=== PATIENT | female | born 1980 | race Two or more races ===

== ENCOUNTER 2018-04-21 08:16 | Outpatient (CLI) | payer OTHER | END 2018-04-21 08:45 | disposition home or self-care (01) | LOC: LAB 08:16 | DX: N30.00 Acute cystitis without hematuria (principal); N20.0 Calculus of kidney; R82.79 Other abnormal findings on microbiological examination of urine ==

== ENCOUNTER 2018-04-21 08:50 | Outpatient (CLI) | payer OTHER | END 2018-04-21 09:59 | disposition home or self-care (01) | LOC: RAD 501 08:50 | DX: N20.0 Calculus of kidney (principal); N20.1 Calculus of ureter ==

== ENCOUNTER 2018-05-20 16:05 | Outpatient (CLI) | payer OTHER | END 2018-05-20 18:00 | disposition home or self-care (01) | LOC: TOM 16:05 | DX: R10.84 Generalized abdominal pain (principal) ==

== ENCOUNTER 2018-05-20 17:25 | Outpatient (CLI) | payer OTHER | END 2018-05-20 17:42 | disposition home or self-care (01) | LOC: LAB 17:25 | DX: N30.00 Acute cystitis without hematuria (principal) ==

== ENCOUNTER 2018-05-27 10:08 | Outpatient (CLI) | payer OTHER | END 2018-05-27 10:25 | disposition home or self-care (01) | LOC: RAD 501 10:08 | DX: N20.0 Calculus of kidney (principal) ==

== ENCOUNTER 2018-06-24 09:22 | Outpatient (CLI) | payer OTHER | END 2018-06-24 14:16 | disposition home or self-care (01) | LOC: SONOGRAMA 09:22 | DX: N60.11 Diffuse cystic mastopathy of right breast (principal) ==

== ENCOUNTER → 2018-10-25 16:21 | Outpatient (CLI) | payer OTHER | END | disposition home or self-care (01) | LOC: LAB 16:21 | DX: J11.1 Influenza due to unidentified influenza virus with other respiratory manifestations (principal); R50.9 Fever, unspecified ==

== ENCOUNTER 2018-12-24 09:54 | Outpatient (CLI) | payer OTHER | END 2018-12-24 10:05 | disposition home or self-care (01) | LOC: LAB 09:54 | DX: D62 Acute posthemorrhagic anemia (principal); Z00.8 Encounter for other general examination ==

== ENCOUNTER → 2019-06-25 11:09 | Outpatient (CLI) | payer OTHER | END | disposition home or self-care (01) | LOC: LAB 11:09 | DX: A49.3 Mycoplasma infection, unspecified site (principal) ==

== ENCOUNTER 2019-10-29 10:38 | Outpatient (CLI) | payer OTHER | END 2019-10-29 15:00 | disposition home or self-care (01) | LOC: LAB 10:38 | DX: J11.1 Influenza due to unidentified influenza virus with other respiratory manifestations (principal) ==

== ENCOUNTER → 2019-11-16 09:19 | Outpatient (CLI) | payer OTHER | END | disposition home or self-care (01) | LOC: LAB 09:09 | DX: N91.1 Secondary amenorrhea (principal) ==

== ENCOUNTER 2019-11-16 10:05 | Outpatient (CLI) | payer OTHER | END 2019-11-16 11:00 | disposition home or self-care (01) | LOC: MAMO-SONO 10:05 | DX: Z12.31 Encounter for screening mammogram for malignant neoplasm of breast (principal); N60.11 Diffuse cystic mastopathy of right breast ==

== ENCOUNTER 2020-09-02 15:37 | Outpatient (CLI) | payer OTHER | END 2020-09-02 18:00 | disposition home or self-care (01) | LOC: LAB 15:37 | PROVIDERS: ATTEND Urology | DX: N20.0 Calculus of kidney (principal) ==

== ENCOUNTER → 2020-12-29 08:59 | Outpatient (CLI) | payer OTHER | END | disposition home or self-care (01) | LOC: LAB 08:59 | PROVIDERS: ATTEND Obstetrics & Gynecology | DX: N30.00 Acute cystitis without hematuria (principal) ==

== ENCOUNTER 2022-06-19 10:42 | Outpatient (CLI) | payer OTHER | END 2022-06-19 10:54 | disposition home or self-care (01) | LOC: RAD 10:42 | PROVIDERS: ATTEND Urology | DX: N20.1 Calculus of ureter (principal) ==

== ENCOUNTER 2023-12-27 14:03 | Outpatient (CLI) | payer OTHER | END 2023-12-27 14:10 | disposition home or self-care (01) | LOC: RAD 14:03 | PROVIDERS: ATTEND Internal Medicine Pulmonary Disease | DX: J45.21 Mild intermittent asthma with (acute) exacerbation (principal) ==

== ENCOUNTER 2024-04-03 12:35 | Outpatient (CLI) | payer OTHER ==
[2024-04-03 13:07] LABS: PH,URINE 5.5 (5.0-8.0); URINE APPEARANCE Clear; URINE BILIRRUBIN Negative (NEGATIVE); URINE BLOOD Negative; URINE COLOR Yellow; URINE GLUCOSE Negative (NEGATIVE); URINE LEUKOCYTE Small; URINE NITRATE Negative; URINE PROTEIN Negative (NEGATIVE); URINE UROBILINOGEN 0.2 E.U./dl
[2024-04-03 13:08] LABS: URINE BACTERIA 9593.4 uL (0.0-1933); URINE EPITHELIAL CELLS 3.5 uL (0.0-38.8); URINE RBC 6.8 uL (0.0-20.8)
== END 2024-04-03 12:40 | disposition home or self-care (01) ==
LOC: LAB 12:35
PROVIDERS: ATTEND Urology
DX: N39.0 Urinary tract infection, site not specified (principal)

== ENCOUNTER 2024-09-02 09:05 | Outpatient (CLI) | payer OTHER ==
[2024-09-02 09:48] LABS: HEMATOCRIT 36.3 % (36.0-45.00); MEAN CELL VOLUME 81.4 fL (80.00-100.00); MEAN CORPUSCULAR HGB CONC 33.2 g/dl (32.0-36.0); PLATELET COUNT 197 K/uL (150-450); RED BLOOD COUNT 4.47 M/uL (4.00-6.00); RED CELL DISTRIBUTION WIDTH 14.7 % (11.5-14.5)
[2024-09-02 10:51] LABS: ALBUMIN 4.2 gm/dL (3.4-5.0); BILIRUBIN TOTAL 0.55 mg/dL (0.3-1.2); CALCIUM 8.8 mg/dL (8.5-10.1); CHOL HDL RATIO 1.9 (0-5.0); CREATININE SERUM 0.78 mg/dL (0.55-1.02); GFR 80.99; GLOBULINA 3.9 G/DL (2.4-3.5); POTASSIUM 3.98 mEq/L (3.5-5.1); T4 FREE 1.12 NG/ML (0.76-1.46); TOTAL PROTEIN 8.1 gm/dL (6.4-8.2); TSH 1.19 uIU/mL (0.358-3.74)
[2024-09-02 11:19] LABS: PH,URINE 7.5 (5.0-8.0); URINE APPEARANCE Clear; URINE BILIRRUBIN Negative (NEGATIVE); URINE BLOOD Large; URINE COLOR Yellow; URINE GLUCOSE Negative (NEGATIVE); URINE KETONE Negative (NEGATIVE); URINE LEUKOCYTE Trace; URINE NITRATE Negative; URINE PROTEIN Negative (NEGATIVE); URINE UROBILINOGEN 0.2 E.U./dl
[2024-09-02 11:25] LABS: URINE BACTERIA 89.3 uL (0.0-1933); URINE EPITHELIAL CELLS 3.3 uL (0.0-38.8); URINE RBC 1911.1 uL (0.0-20.8); URINE WBC 34.4 uL (0.0-23.2)
[2024-09-03 06:04] LABS: FOLLICLE STIMULATING HORMONE 6.2 mIU/mL (.); LEUTEINIZING HORMONE 7.6 mIU/mL (.); PROLACTIN 17.1 ng/mL (4.8-33.4)
== END 2024-09-02 09:21 | disposition home or self-care (01) ==
LOC: LAB 09:05
PROVIDERS: ATTEND Obstetrics & Gynecology
DX: N60.19 Diffuse cystic mastopathy of unspecified breast (principal); N91.1 Secondary amenorrhea

== ENCOUNTER 2024-09-07 08:48 | Outpatient (CLI) | payer OTHER | END 2024-09-07 09:00 | disposition home or self-care (01) | LOC: MAMO-SONO 08:48 | PROVIDERS: ATTEND Obstetrics & Gynecology | DX: N60.11 Diffuse cystic mastopathy of right breast (principal); N60.12 Diffuse cystic mastopathy of left breast ==

== ENCOUNTER → 2024-09-07 11:25 | Outpatient (CLI) | payer OTHER ==
[2024-09-07 12:07] LABS: URINE APPEARANCE Clear; URINE BILIRRUBIN Negative (NEGATIVE); URINE BLOOD Negative; URINE COLOR Yellow; URINE GLUCOSE Negative (NEGATIVE); URINE KETONE Negative (NEGATIVE); URINE LEUKOCYTE Negative; URINE NITRATE Negative; URINE PROTEIN Negative (NEGATIVE)
[2024-09-07 12:12] LABS: URINE EPITHELIAL CELLS 11.3 uL (0.0-38.8); URINE RBC 9.7 uL (0.0-20.8)
== END | disposition home or self-care (01) ==
LOC: LAB 11:25
PROVIDERS: ATTEND Obstetrics & Gynecology
DX: N30.00 Acute cystitis without hematuria (principal)

== ENCOUNTER 2024-12-03 15:13 | Emergency (ER) | payer OTHER ==
[~2024-12-03] VITALS: Ht 167.6 cm; Wt 60.3 kg
[2024-12-03] MEDS ORDERED: FAMOTIDINE/PF 20 MG in 0.9 % SODIUM CHLORIDE 8 ML IV PUSH STA (16:48)
[2024-12-03] MEDS ORDERED: KETOROLAC TROMETHAMINE 30 MG VIAL IV ONE ×2 (17:00→21:30)
[2024-12-03] MEDS ORDERED: 0.9 % SODIUM CHLORIDE 1,000 ML IV SCH (17:00)
[2024-12-03 17:54] LABS: HEMATOCRIT 34.2 % (36.0-45.00); HEMOGLOBIN 11.4 g/dL (12.0-15.00); MEAN CELL VOLUME 80.7 fL (80.00-100.00); MEAN CORPUSCULAR HEMOGLOBIN 26.9 pg (27.00-32.0); MEAN CORPUSCULAR HGB CONC 33.3 g/dl (32.0-36.0); PLATELET COUNT 177 K/uL (150-450); RED BLOOD COUNT 4.24 M/uL (4.00-6.00); RED CELL DISTRIBUTION WIDTH 15.8 % (11.5-14.5)
[2024-12-03] MEDS ORDERED: BUTALB/ACETAMINOPHEN/CAFFEINE 1 TAB TABLET PO ONE (19:30)
[2024-12-03 19:42] LABS: ALBUMIN 3.5 gm/dL (3.4-5.0); BILIRUBIN TOTAL 0.52 mg/dL (0.3-1.2); CREATININE SERUM 0.66 mg/dL (0.55-1.02); GFR 98.21; GLOBULINA 4.3 G/DL (2.4-3.5); POTASSIUM 3.67 mEq/L (3.5-5.1); TOTAL PROTEIN 7.8 gm/dL (6.4-8.2)
[2024-12-03] MEDS ORDERED: PIPERACILLIN/TAZOBACTAM SODIUM 3.375 GM VIAL IV ONE (21:30)
[2024-12-03] MEDS ORDERED: PROTONIX40 MG PO (22:02)
[2024-12-03] MEDS ORDERED: CIPRO500 MG PO (22:02)
[2024-12-03] MEDS ORDERED: INTESTINEX680 M1 PO (22:02)
[2024-12-03] MEDS ORDERED: LEVSIN/SL0.125 MG SL (22:02)
[2024-12-03] MEDS ORDERED: METRONIDAZOLE500 MG PO (22:02)
== END 2024-12-03 22:27 | disposition home or self-care (01) ==
LOC: ER 15:15
PROVIDERS: General Practice
DX: R10.32 Left lower quadrant pain (principal); K57.32 Diverticulitis of large intestine without perforation or abscess without bleeding

== ENCOUNTER 2025-04-14 16:30 | Outpatient (CLI) | payer OTHER ==
[~2025-04-14 16:30] MED LIST: CIPRO500 MG PO; INTESTINEX680 M1 PO; LEVSIN/SL0.125 MG SL; METRONIDAZOLE500 MG PO; PROTONIX40 MG PO
== END 2025-04-14 16:47 | disposition home or self-care (01) ==
LOC: TOM 16:30
PROVIDERS: ATTEND Urology
DX: N20.1 Calculus of ureter (principal)